=== PATIENT | female | born 1955 | race Caucasian/White ===

== ENCOUNTER 2021-08-31 12:13 | Emergency (ER) | payer MEDICARE, SELFPAY ==
--- NOTE | 2021-08-31 12:15 | ED.SKABFB ---
HPI - Skin/Abscess/Foreign Bdy General Chief complaint: Skin/Abscess/Foreign Body Stated complaint: Skin Sore Time Seen by Provider: 08/31/21 12:15 Source: patient Mode of arrival: ambulatory Limitations: no limitations History of Present Illness HPI narrative: is a 65-year-old female patient presenting to the clinic today with complaints of a skin sore x2 3 days. She reports that she developed a rash under her abdominal fold and it began bleeding. She reports that the bleeding has stopped but now she has a wound/sore to the right lower abdominal wall. Reports that she has yellowish discharge coming from the wound. She denies any pain at this time. Related Data Home Medications Medication Instructions Recorded Confirmed albuterol sulfate 2 puff INHALATION QID PRN 08/31/21 08/31/21 budesonide-formoterol [Symbicort] 2 puff INHALATION BID 08/31/21 08/31/21 fluoxetine 20 mg PO DAILY 08/31/21 08/31/21 ketoconazole 1 applic TOPICAL DAILY 08/31/21 08/31/21 montelukast 10 mg PO DAILY 08/31/21 08/31/21 tiotropium bromide [Spiriva 2 puff INHALATION DAILY 08/31/21 08/31/21 Respimat] Allergies Allergy/AdvReac Type Severity Reaction Status Date / Time azithromycin Allergy Mild HIVES Verified 08/31/21 12:37 Cephalosporins Allergy Mild HIVES Verified 08/31/21 12:37 ASPIRIN (Generic Allergy) Allergy Y Uncoded 08/31/21 12:37 Review of Systems Review of Systems: Pertinent positives per HPI. Patient denies any fever, chills, rash, headache, visual changes, dizziness, cough, runny nose, sore throat, shortness of breath, chest pain, palpitations, nausea, vomiting, diarrhea, constipation, abdominal pain, or any urinary issues. PMFSH Comments At the time of my signature, I reviewed and agree with the nursing past medical, surgical, social, and family history. There is no relevant family history pertinent to the patient complaint. Exam Narrative: General: Well-developed, well nourished, in no apparent distress Head: Normocephalic, atraumatic. Cardio: Regular rate and rhythm, s1 and s2 normal, no murmur appreciated. Resp: Clear to auscultation bilaterally, no rhonchi, rales, wheezing or rubs. Integumentary: [place], warm, and dry, open wound to the right lower abdominal wall that tunnels approximately 1 cm. Yellowish discharge expressed from the wound. Wound culture obtained. Wound is indurated approximately the size of a golf ball with very mild erythema. Course Course Emergency Course: Portions of this record may have been created with voice recognition software. Level of Care: Express Care Visit Vital Signs Vital signs: Vital Signs Temperature 37.7 C H 08/31/21 12:22 Pulse Rate 73 08/31/21 12:22 Respiratory Rate 20 08/31/21 12:22 Blood Pressure 142/59 H 08/31/21 12:22 Pulse Oximetry 95 08/31/21 12:22 Temperature 37.7 C H 08/31/21 12:22 Pulse Rate 73 08/31/21 12:22 Respiratory Rate 20 08/31/21 12:22 Blood Pressure 142/59 H 08/31/21 12:22 Pulse Oximetry 95 08/31/21 12:22 Vital signs reviewed MDM - Skin/Abscess/Foreign Bdy MDM Narrative Medical decision making narrative: At the time of visit patient is resting comfortably in the exam chair. Has an open wound to the right lower abdomen that has purulent discharge. Wound culture obtained and prescription for Bactrim placed. Wound was cleansed with Dermaclens in the clinic and triple antibiotic ointment and 4 x 4's applied. Discharge Plan Discharge Clinical Impression: Open wound of abdominal wall Qualifiers: Encounter type: initial encounter Qualified Code(s): S31.109A - Unspecified open wound of abdominal wall, unspecified quadrant without penetration into peritoneal cavity, initial encounter Patient Disposition: Home, Self-Care Condition: Stable Instructions: Antibiotic Form, Acute Wounds (ED) Additional Instructions: Wound culture obtained today and sent to lab Take antibiotics until they are all gone Dressing
[2021-08-31 12:22] VITALS: BP 142/59; PULSE 73; RESP 20; TEMP 37.7; O2SAT 95
== END 2021-08-31 13:00 | disposition home or self-care (01) ==
PROVIDERS: Emergency Provider Nurse Practitioner Family
DX: S31.103A Unspecified open wound of abdominal wall, right lower quadrant without penetration into peritoneal cavity, initial encounter (principal); X58.XXXA Exposure to other specified factors, initial encounter; J44.9 Chronic obstructive pulmonary disease, unspecified
CPT/HCPCS: 87070; 87205; 99203; G0463

== ENCOUNTER 2021-09-17 11:12 | Outpatient (CLI) | payer MEDICARE, SELFPAY ==
--- NOTE | ~2021-09-17 | CT_ITS ---
EXAMINATION: CT abdomen pelvis wo con DATE: 09/17/2021 12:04 INDICATION: Enterocutaneous fistula. Right lower quadrant skin lesion. TECHNIQUE: Computed tomography (CT) of the abdomen and pelvis was performed without intravenous contr ast. Automated exposure control and iterative reconstruction technique were employed. The dose-length product was 1433.65 mGy-cm. COMPARISON: None. FINDINGS: The visualized portions of the lung bases demonstrate emphysema. No pleural effusion. The h eart size is normal. No pericardial effusion. There are surgical changes of the stomach. The liver, g allbladder, spleen, pancreas, adrenal glands, and kidneys are normal. There is no urolithiasis. There are no dilated loops of bowel. The appendix is normal. There are no pathologically enlarged lymph no anuj. There is no free intraperitoneal fluid. There is focal skin thickening in right lower quadrant. There is severe lower lumbar spondylosis. There is mild chronic anterior wedging of multiple lower th oracic vertebral bodies. There are bridging endplate osteophytes at multiple levels in the thoracic s pine, consistent with diffuse idiopathic skeletal hyperostosis (DISH). IMPRESSION: 1. Focal skin thickening in right lower quadrant, likely inflammation. No fistula. Reviewed, dictated and finalized at location A. IMPRESSION: 1. Focal skin thickening in right lower quadrant, likely inflammation. No fistu la.
[2021-09-17 11:35] LABS: Estimated Glomerular Filt Rate 53
== END 2021-09-17 11:13 | disposition home or self-care (01) ==
LOC: CHSLAB 11:16
PROVIDERS: PCP Internal Medicine; Visit Provider Nurse Practitioner Family
DX: L98.8 Other specified disorders of the skin and subcutaneous tissue (principal); R19.00 Intra-abdominal and pelvic swelling, mass and lump, unspecified site
CPT/HCPCS: 74176

== ENCOUNTER 2022-04-12 12:56 | Outpatient (CLI) | payer MEDICARE, SELFPAY ==
--- NOTE | ~2022-04-12 | US_ITS ---
EXAMINATION: US thyroid DATE: 04/12/2022 13:51 INDICATION: History of lung cancer. Thyroid nodule seen on PET scan. TECHNIQUE: Multiple ultrasound images of the thyroid were obtained. COMPARISON: None. The above-mentioned PET scan is not available in our system at the time of this dic tation. FINDINGS: The right thyroid lobe measures 4.7 x 1.9 x 1.7 cm. The left thyroid lobe measures 4.6 x 2.3 x 2.1 c m. There is normal echotexture and echogenicity throughout the thyroid gland. Several 2-3 mm simple bilateral thyroid cysts, of doubtful clinical significance. 2.6 cm solid, slightly hypoechoic, wider than tall, smoothly marginated left thyroid lobe nodule, without suspicious echogenic foci. The nodul e contains a 4 mm hyperechoic focus without shadowing, likely representing proteinaceous or hemorrhag ic material. Normal vascular flow is present. IMPRESSION: 1. 2.6 cm moderately suspicious (TI-RADS 4) left thyroid nodule, recommend FNA for further evaluation . Reviewed, dictated and finalized at location K. WORKER IMPRESSION: 1. 2.6 cm moderately suspicious (TI-RADS 4) left thyroid nodule, recommend FNA for further evaluation.
== END 2022-04-12 12:57 | disposition home or self-care (01) ==
LOC: CHSIMG 12:58
PROVIDERS: PCP Internal Medicine; Visit Provider Internal Medicine
DX: E04.1 Nontoxic single thyroid nodule (principal)
CPT/HCPCS: 76536

== ENCOUNTER 2022-05-06 12:23 | Outpatient (CLI) | payer MEDICARE, SELFPAY ==
--- NOTE | ~2022-05-06 | US_ITS ---
EXAMINATION: US FNA w image guidance DATE: 05/06/2022 13:35 INDICATION: Thyroid nodule TECHNIQUE: A time-out was performed to verify the patient's name, date of , and procedure to be performed . The procedure and its benefits and risks were discussed with the patient. Risks specifically discus sed included bleeding and infection. The patient understood the risks and agreed to proceed. The neck was prepped and draped in the usual sterile manner. 3 mL 1% lidocaine was used for local anesthesia . 6 passes were made with a 25G needle into the lesion. Appropriate needle location was documented with continuous sonographic guidance. A sterile bandage was applied. There were no immediate compli cations. FINDINGS: Grayscale ultrasound images demonstrate biopsy needles advanced into a 2.4 cm TI RADS 4 left thyroid nodule.. IMPRESSION: 1. Successful ultrasound-guided fine needle aspiration of . Reviewed, dictated and finalized at location A. UTER SCIENTIST
== END 2022-05-06 12:24 | disposition home or self-care (01) ==
PROVIDERS: PCP Internal Medicine; Visit Provider Internal Medicine
DX: E04.1 Nontoxic single thyroid nodule (principal)
CPT/HCPCS: 10005; 88173; 88305

== ENCOUNTER 2024-07-24 11:47 | Outpatient (CLI) | payer MEDICARE, SELFPAY ==
--- NOTE | ~2024-07-24 | MM_ITS ---
EXAMINATION: MM screening nancy BI w lashanda HISTORY: Screening TECHNIQUE: Craniocaudal and mediolateral oblique 3-D tomosynthesis images were obtained and synthetic 2-D images were generated. CAD analysis was submitted and interpreted. COMPARISON: 09/23/2016 BREAST PARENCHYMAL COMPOSITION: Not Dense. The breasts are almost entirely fatty. FINDINGS: There is no evidence of suspicious mass, calcification, or architectural distortion to sugg est malignancy in either breast. There has been no suspicious interval change. IMPRESSION: 1. No mammographic evidence of malignancy. 2. Recommend routine screening mammography in one year. BI-RADS Category 1: Negative Reviewed, dictated and finalized at location A.
--- NOTE | ~2024-07-24 | DEXA_ITS ---
Bone Density Report Name: CELIA MEADOWS Age: 68 Sex: Female Ethnicity: White Date of : 1955 Indication: postmenopausal; screening for osteoporosis; height loss; asthma or emphysema; hysterectomy; Referring Provider: Lemuel Haque Study: Bone densitometry was performed. Exam Date: July 24, 2024 Accession number: [id number] Bone Density: Region BMD T-score Z-score Classification AP Spine(L1-L4) 1.014 -0.3 1.8 Normal Femoral Neck (Left) 0.509 -3.1 -1.2 Osteoporosis Total Hip (Left) 0.730 -1.7 -0.2 Osteopenia Femoral Neck (Right) 0.469 -3.4 -1.6 Osteoporosis Total Hip (Right) 0.729 -1.7 -0.2 Osteopenia Femoral Neck Mean 0.489 -3.2 -1.4 Osteoporosis Total Hip Mean 0.730 -1.7 -0.2 Osteopenia World Health Organization criteria for BMD impression classify patients as: Normal (T-score at or above -1.0), Osteopenia (T-score between -1.0 and -2.5), or Osteoporosis (T-score at or below -2.5). Clinical Information Provided by Patient: Smokes Has used the following medications: Vitamin D, Calcium Has the following medical conditions: Asthma or Emphysema, Hysterectomy Patient maximum height was 64 Menopause Age: 38 No regular weight bearing exercise Drinks caffeinated beverages Onset of menses at age 11 Number of children 4 Impression: The patient has osteoporosis, based on the Right Femoral Neck T-score. The patient has risk factors, including: smoking. Discussion: INCREASED RISK OF FRACTURE. BONE DENSITY IS UNDESIRABLY LOW AT ONE OR MORE SKELETAL SITES, CONSISTENT WITH POSTMENOPAUSAL OSTEOPOROSIS. This patient's lowest T-score meets the World Health Organization's (WHO) criteria for osteoporosis at one or more sites (T-score -2.5 or below). In untreated patients, the risk of osteoporotic fracture increases approximately two-fold for each 1.0 SD decrease in T-score. Low bone density is not the only risk factor for fracture; also consider factors such as patient's age, frailty or poor health, risk of falling, risk of injury, previous osteoporotic fracture, family history of osteoporosis, cigarette smoking, low body weight, etc. Not everyone with low bone mineral density has osteoporosis; osteomalacia and other metabolic bone disorders should also be considered. Patients who have osteoporosis should be evaluated for specific diseases and conditions (secondary causes) that may cause or contribute to bone loss. The [place] Association of Clinical Endocrinologists (AACE) and National Osteoporosis Foundation (NOF) recommend pharmacologic intervention for all postmenopausal women whose T-score is in this range. The patient should follow a healthful lifestyle (good nutrition with adequate calcium and vitamin D, and appropriate weight-bearing exercise). Follow-Up: Consider a repeat BMD and Vertebral Fracture Assessment (VFA) exam in 2 years or sooner if medically necessary, to reassess this patient's status. Reported by: MATTEO on 07/24/2024 12:34:00 PM. Reviewed, dictated and finalized at location A.
--- OUTSIDE RECORDS SUMMARY | 2024-07-24 13:24 | XMS_ITS | Clinical Summary ---
Author Organization [facility] Address [address] [place] [id number] Care Team Providers Care Journeyman Carpenter Name Role Phone Lemuel Haque MD Primary Care Provider [phone] Pieter Gurrola MD PhD Unavailable [phone] Beto Iraheta MD Unavailable [phone] Allergies Active Allergy Reactions Criticality Noted Date Comments Aspirin Silver Unknown 08/29/2016 Medications budesonide-formo terol (SYMBICORT) 160-4.5 mcg/actuation inhaler Inhale 2 puffs 2 (two) times a day. Rinse mouth with water after use. Do not swallow. Active spironolactone (ALDACTONE) 50 mg tablet Take 50 mg by mouth daily. Active albuterol HFA (PROVENTIL HFA,VENTOLIN HFA,PROAIR HFA) 90 mcg/actuation inhalerIndicatio ns:Chronic Obstructive Pulmonary Disease Inhale 2 puffs every 4 (four) hours as needed for wheezing. Active FLUoxetine (PROzac) 20 mg capsule TAKE 1 CAPSULE (20 MG) DAILY 0 Active Spiriva Respimat 2.5 mcg/actuation inhaler INHALE 2 PUFFS BY MOUTH EVERY DAY 0 Active fluticasone propionate (FLONASE) 50 mcg/actuation nasal sprayIndications :Allergic rhinitis, unspecified seasonality, unspecified trigger Administer 2 sprays into each nostril daily 16 g 11 0 Active azithromycin (Zithromax Z-Ochoa) 250 mg tablet Take 1 tablet (250 mg total) by mouth daily Take first 2 tablets together, then 1 every day until finished. 6 tablet 4 Active Active Problems Problem Noted Date Diagnosed Date Malignant neoplasm of upper lobe, right bronchus or lung 03/04/2022 Cancer Staging:Clinical stage from 03/04/2022:Stage IA2(cT1b, cN0, cM0) - Signed by Pieter Gurrola MD PhD on 03/04/2022 Allergic rhinitis 02/21/2020 Assessment & Plan (02/21/2020 11:29 AM BLASTER HELPER): Nasal saline spray (Simply saline, Little Remedies, [place] Detour, Gage) 2 second sprays or 2 squeezes into each nostril while looking down over the sink, do not need to sniff in. Followed by Flonase 2 sprays into each nostril while looking down over the sink, do not sniff in or blow nose after use for at least 30 minutes daily Cetirizine 10 mg (Zyrtec) daily CHF (congestive heart failure) 05/27/2018 Assessment & Plan (05/27/2018 9:41 AM BLASTER HELPER): Echo could estimated RVSP and suspect some pulm htn. EF normal Lasix added to spironolactone Morbid obesity 05/24/2018 Overview (05/24/2018): Can be addressed on outpt basis when resp issues more stable Influenza A 05/23/2018 Assessment & Plan (05/24/2018 4:39 PM BLASTER HELPER): Patient is currently on Tamiflu. She has been afebrile and denies any myalgias. Will continue to monitor. Supportive care if needed. Assessment & Plan (05/23/2018 10:21 PM BLASTER HELPER): Patient is currently on Tamiflu. She has been afebrile and denies any myalgias. Will continue to monitor. Supportive care if needed. Acute exacerbation of chroni c obstructive pulmonary disease (COPD) 05/23/2018 Assessment & Plan (05/24/2018 4:40 PM BLASTER HELPER): Likely secondary to influenza. Patient was given 125 mg of Solu-Medrol with EMS. Will start prednisone 40 daily. Patient is on doxycycline. Will continue with breathing treatments q.4 hours. Continue to monitor. Assessment & Plan (05/23/2018 10:31 PM BLASTER HELPER): Likely secondary to influenza. Patient was given 125 mg of Solu-Medrol with EMS. Will start prednisone 40 daily. Patient is on doxycycline. Will continue with breathing treatments q.4 hours. Continue to monitor. Acute on chronic respiratory failure with hypoxia and hypercapnia 05/23/2018 Assessment & Plan (05/25/2018 7:02 PM BLASTER HELPER): Likely secondary to influenza and acute COPD exacerbation. Patient is on 3 L home oxygen normally. She is currently on BiPAP which will continue overnight. Will repeat ABG in the a.m.. ABG didn't show much improvement, settings adjusted per RT and still largely unchanged. Pulmonary consulted, settings adjusted and resp acidosis improving BNP also elevated. Given dose of Lasix and Echo ordered as well Assessment & Plan (05/23/2018 10:22 PM BLASTER HELPER): Likely secondary to influenza and acute COPD exacerbation. Patient is on 3 L home oxygen normally. She is currently on BiPAP which will continue overnight. Will repeat ABG in the a.m.. Essential hypertension 05/23/2018 Assessment & Plan (05/24/2018 4:39 PM BLASTER HELPER): Blood pressure is slightly elevated at this time. Will DC IV fluids. Will resume spironolactone with hold parameters. Continue to monitor. Assessment & Plan (05/23/2018 10:21 PM BLASTER HELPER): Blood pressure is slightly elevated at this time. Will DC IV fluids. Will resume spironolactone with hold parameters. Continue to monitor. Tobacco dependence 05/23/2018 Assessment & Plan (05/24/2018 4:39 PM BLASTER HELPER): Patient smokes 1 pack per day for last 50 years. She would like a nicotine patch at this time. Assessment & Plan (05/23/2018 10:21 PM BLASTER HELPER): Patient smokes 1 pack per day for last 50 years. She would like a nicotine patch at this time. Encounters Date Type Department Care Team Description 07/18/2024 1:06 PM CDT - 07/18/2024 11:59 PM CDT Hospital Encounter [facility] [address] [place] [address] Malignant neoplasm of upper lobe, right bronchus or lung (HCC) Discharge Disposition: Discharge to home or self care 07/17/2024 Telephone [facility] [address] [place] [address] Breanna John 05/02/2024 1:30 PM BLASTER HELPER Office Visit [facility] [address] [place] [address] Angelique Gaspar NP Malignant neoplasm of upper lobe, right bronchus or lung (HCC) 04/25/2024 1:24 PM BLASTER HELPER - 04/25/2024 11:59 PM BLASTER HELPER Hospital Encounter [facility] [address] [place] [id number] Malignant neoplasm of upper lobe, right bronchus or lung (HCC) Discharge Disposition: Discharge to home or self care from Last 3 Months Surgical History Surgery Date Site/Laterality Comments GASTRIC BYPASS Medical History Medical History Date Comments Anemia Anemia Hypertension Hypertension COPD (chronic obstructive pulmonary disease) (HC C) Family History Medical History Relation Name Comments Cancer Other 1 Family history of Cancer; Heart disease Other 2 Family history of Heart disease; Hypertension Other 3 Family history of Hypertension; Relation Name Status Comments Other 1 Other 2 Other 3 Social History Tobacco Use Types Packs/Day Years Used Date Smoking Tobacco: Every Day Cigarettes 1.5 56.3 Started: 1968 Smokeless Tobacco: Never Tobacco Cessation:Ready to Q uit: No; Counseling Given: No Comments:pack n a half Alcohol Use Standard Drinks/Week Comments No 0 (1 standard drink = 0.6 oz pur e alcohol) Personal Safety Answer Date Recorded Have you ever been in or are you currently in a harmful physical or emotional relationship or is someone making you feel afraid or unsafe? Denies 04/30/2023 Comments No Sex and Gender Information Value Date Recorded Sex Assigned at Not on file Legal Sex Female 1:52 AM BLASTER HELPER Gender Identity Not on file Sexual Orientation Not on file Obstetrics History Last Filed Vital Signs Vital Sign Reading Time Taken Comments Blood Pressure 131/66 05/02/2024 1:45 PM BLASTER HELPER Pulse 76 05/02/2024 1:45 PM BLASTER HELPER Temperature 36.3 C (97.4 F) 05/02/2024 1:45 PM BLASTER HELPER Respiratory Rate 20 05/02/2024 1:45 PM BLASTER HELPER Oxygen Saturation 96% 05/02/2024 1:45 PM BLASTER HELPER Inhaled Oxygen Concentration - - Weight 104.8 kg (231 lb) 02/01/2024 1:04 PM CDT Height 160 cm (5' 3 ) 04/30/2023 2:10 PM BLASTER HELPER Body Mass Index 40.92 04/30/2023 2:10 PM BLASTER HELPER Plan of Treatment Health Maintenance Due Date Last Done Comments Breast Cancer Screening-Mammogram 1955 Colon Cancer Screening-Colonoscopy 1955 Depression Screening 1955 Fall Risk Assessment 1955 Hepatitis C Screening 1955 Osteoporosis Screening-Bone Density Scan 1955 DTaP/Tdap/Td Vaccine (1 - Tdap) 1964 Hepatitis B Screening 12/23/1971 Zoster Vaccine (1 of 2) 12/23/2003 Well Visit 65+ 2018 Pneumococcal vaccine 65+ (3 of 3 - PCV20 or PCV21) 04/30/2024 04/30/2019, 02/16/2018 Influenza Vaccine (Season Ended) 2024 Procedures Procedure Name Priority Date/Time Associated Diagnosis Comments CT CHEST WO CONTRAST Schedule Routine, Read Routine (OP Routine) 04/25/2024 1:43 PM BLASTER HELPER Malignant neoplasm of upper lobe, right bronchus or lung (HCC) from Last 3 Months Results * CT Chest WO Contrast (04/25/2024 1:43 PM BLASTER HELPER) Anatomical Region Laterality Modality Body N/A Computed Tomogra phy 04/26/2024 12:5 6 PM BLASTER HELPER Narrative 04/26/2024 1:10 PM BLASTER HELPER EXAM DESCRIPTION: CT CHEST WO CONTRAST REASON FOR STUDY: Non-small cell lung cancer (NSCLC), non-metastatic, assess treatment response F/u on lung cancer, received radiation, no current complaints, smoker TECHNIQUE: CT scan of the chest performed without intravenous contrast using helical scanning technique. Reconstructed coronal and sagittal MPR images reviewed. All images stored on PACS. Automated exposure control was used as a dose optimization technique for this examination. COMPARISON: 01/25/2024 FINDINGS: The sensitivity for detection of solid visceral lesions is diminished without the use of intravenous contrast. LUNGS: There is no definite evidence of a pneumothorax. The central airways are grossly patent. There are scattered mild bronchial wall thickening, which is likely related to mild chronic bronchitis/bronchiolitis. There are severe emphysematous changes of lungs with scattered mild subsegmental atelectasis and scarring. There is no definite evidence of a pleural effusion. There is redemonstration of the patchy linear airspace opacities in the anteromedial right upper lobe extending from the right hilum to the anterior pleural surface with mild irregular pleural thickening measuring up to 0.6 cm in thickness, which previously measured up to 0.4 cm (axial image 29). Findings are likely related to posttreatment/postradiation changes, however given the mild increased pleural thickening, local recurrence can not be entirely excluded. There is interval development of a 0.6 cm right middle lobe pulmonary nodule (axial image 45). The previously visualized new irregular nodule in the anterolateral right upper lobe measuring 0.6 x 0.3 cm appears grossly stable (axial image 32). There is interval decreased conspicuity of the previously visualized subtle bilobed pulmonary nodule in the medial right middle lobe measuring 0.2 cm on the current study, which previously measured up to 0.4 cm (axial image 45). There is a stable subpleural 0.2 cm pulmonary nodule in the anterolateral left upper lobe, which is grossly unchanged since 08/04/2021, and therefore likely benign (axial image 15). There is a stable subpleural 0.6 cm pulmonary nodule in the anterolateral left lower lobe, which may be partially calcified and is overall grossly unchanged since prior CT dated 08/04/2021, and therefore likely benign (axial image 75). MEDIASTINUM/NADIRA: There is a grossly stable hypoattenuating left thyroid nodule measuring 1.5 cm, which is better evaluated on prior thyroid ultrasound dated 06/19/2023. The heart size is stable. There are mild atherosclerotic changes of the thoracic aorta and coronary vessels. There is dilatation of main pulmonary artery measuring up to 3.9 cm, which is concerning for pulmonary arterial hypertension. There is no definite unenhanced CT evidence of mediastinal, hilar, or axillary lymphadenopathy. There are scattered subcentimeter mediastinal lymph nodes noted with largest measuring 0.6 cm in the paratracheal region (axial image 30). CORONARY ARTERY CALCIFICATION: Present. CHEST WALL: No masses. No subcutaneous air. HARDWARE/LINES/TUBES: None. UPPER ABDOMEN: There is mild mucosal thickening of the esophagus. There is a small hiatal hernia. Postsurgical changes of gastric bypass are partially visualized. The bilateral adrenal glands are grossly stable and unremarkable. MUSCULOSKELETAL: There is mild osteopenia with degenerative changes of the spine. OTHER: No other significant abnormality. IMPRESSION: Redemonstration of the patchy linear airspace opacities in the anteromedial right upper lobe extending from the right hilum to the anterior pleural surface with mild irregular pleural thickening, which has mildly increased in comparison to the prior study. Findings are likely related to posttreatment/postradiation changes, however given the mild increased pleural thickening, local recurrence can not be entirely excluded. Short-term follow-up CT in 3 months is recommended to assess for stability as clinically indicated. Interval development of a 0.6 cm right middle lobe pulmonary nodule, which is indeterminate in etiology. Continued attention on the aforementioned follow-up chest CT is recommended as included. Previously visualized new irregular pulmonary nodule in the anterolateral right upper lobe measuring up to 0.6 cm appears grossly stable. Continued attention on the aforementioned follow-up chest CT is recommended to assess for stability as clinically indicated. Interval decreased conspicuity of the previously visualized subtle bilobed pulmonary nodule in the medial right middle lobe measuring 0.2 cm on the current study, which previously measured up to 0.4 cm. Additional pulmonary nodules in the left lung, which are grossly unchanged since 08/04/2021, and therefore likely benign. Severe emphysematous changes of lungs with scattered mild subsegmental atelectasis and scarring. Scattered mild bronchial wall thickening, which is likely related to mild chronic bronchitis/bronchiolitis. Mild mucosal thickening of the esophagus, which may be related to underdistention, reactive changes secondary to the small hiatal hernia, or esophagitis. This may be further evaluated with endoscopy as clinically indicated. THIS IS AN ELECTRONICALLY VERIFIED FINAL REPORT 04/26/2024 1:10 PM - Electronically signed by Duran Ortiz D.O. PS: PS Report ID: [id number] Reading Location: [id number] Procedure Note Martínez Ortizarash Rosas, DO - 04/26/2024 EXAM DESCRIPTION: CT CHEST WO CONTRAST REASON FOR STUDY: Non-small cell lung cancer (NSCLC), non-metastatic,assess treatment response F/u on lung cancer, received radiation, no current complaints, smoker TECHNIQUE: CT scan of the chest performed without intravenous contrastusing helical scanning technique. Reconstructed coronal and sagittal MPR images reviewed. All images stored on PACS. Automated exposure control was usedas a dose optimization technique for this examination. COMPARISON: 01/25/2024 FINDINGS: The sensitivity for detection of solid visceral lesions is diminishedwithout the use of intravenous contrast. LUNGS: There is no definite evidence of a pneumothorax. The centralairways are grossly patent. There are scattered mild bronchial wall thickening,which is likely related to mild chronic bronchitis/bronchiolitis. There aresevere emphysematous changes of lungs with scattered mild subsegmentalatelectasis and scarring. There is no definite evidence of a pleural effusion. There is redemonstration of the patchy linear airspace opacities in the anteromedial right upper lobe extending from the right hilum to theanterior pleural surface with mild irregular pleural thickening measuring up to 0.6cm in thickness, which previously measured up to 0.4 cm (axial image 29). Findings are likely related to posttreatment/postradiation changes,however given the mild increased pleural thickening, local recurrence can not be entirely excluded. There is interval development of a 0.6 cm right middle lobe pulmonarynodule (axial image 45). The previously visualized new irregular nodule in the anterolateral right upper lobe measuring 0.6 x 0.3 cm appears grossly stable (axial image 32). There is interval decreased conspicuity of the previously visualizedsubtle bilobed pulmonary nodule in the medial right middle lobe measuring 0.2 cmon the current study, which previously measured up to 0.4 cm (axial image45). There is a stable subpleural 0.2 cm pulmonary nodule in the anterolateralleft upper lobe, which is grossly unchanged since 08/04/2021, and thereforelikely benign (axial image 15). There is a stable subpleural 0.6 cm pulmonarynodule in the anterolateral left lower lobe, which may be partially calcified andis overall grossly unchanged since prior CT dated 08/04/2021, and therefore likely benign (axial image 75). MEDIASTINUM/NADIRA: There is a grossly stable hypoattenuating left thyroid nodule measuring 1.5 cm, which is better evaluated on prior thyroidultrasound dated 06/19/2023. The heart size is stable. There are mildatherosclerotic changes of the thoracic aorta and coronary vessels. There is dilatationof main pulmonary artery measuring up to 3.9 cm, which is concerning for pulmonary arterial hypertension. There is no definite unenhanced CT evidence of mediastinal, hilar, oraxillary lymphadenopathy. There are scattered subcentimeter mediastinal lymphnodes noted with largest measuring 0.6 cm in the paratracheal region (axialimage 30). CORONARY ARTERY CALCIFICATION: Present. CHEST WALL: No masses. No subcutaneous air. HARDWARE/LINES/TUBES: None. UPPER ABDOMEN: There is mild mucosal thickening of the esophagus. Thereis a small hiatal hernia. Postsurgical changes of gastric bypass arepartially visualized. The bilateral adrenal glands are grossly stable andunremarkable. MUSCULOSKELETAL: There is mild osteopenia with degenerative changes ofthe spine. OTHER: No other significant abnormality. IMPRESSION: Redemonstration of the patchy linear airspace opacities in theanteromedial right upper lobe extending from the right hilum to the anterior pleural surface with mild irregular pleural thickening, which has mildly increasedin comparison to the prior study. Findings are likely related to posttreatment/postradiation changes, however given the mild increasedpleural thickening, local recurrence can not be entirely excluded. Short-term follow-up CT in 3 months is recommended to assess for stability asclinically indicated. Interval development of a 0.6 cm right middle lobe pulmonary nodule,which is indeterminate in etiology. Continued attention on the aforementioned follow-up chest CT is recommended as included. Previously visualized new irregular pulmonary nodule in the anterolateral right upper lobe measuring up to 0.6 cm appears grossly stable. Continued attention on the aforementioned follow-up chest CT is recommended toassess for stability as clinically indicated. Interval decreased conspicuity of the previously visualized subtlebilobed pulmonary nodule in the medial right middle lobe measuring 0.2 cm on the current study, which previously measured up to 0.4 cm. Additional pulmonary nodules in the left lung, which are grosslyunchanged since 08/04/2021, and therefore likely benign. Severe emphysematous changes of lungs with scattered mild subsegmental atelectasis and scarring. Scattered mild bronchial wall thickening, which is likely related to mild chronic bronchitis/bronchiolitis. Mild mucosal thickening of the esophagus, which may be related to underdistention, reactive changes secondary to the small hiatal hernia, or esophagitis. This may be further evaluated with endoscopy as clinically indicated. THIS IS AN ELECTRONICALLY VERIFIED FINAL REPORT 04/26/2024 1:10 PM - Electronically signed by Duran Ortiz D.O. PS: PS Report ID: [id number] Reading Location: [place] [address] Angelique Gaspar FINISHING POWDER PRESS OPERATOR IMG CT PROCEDURES Final Resul t from Last 3 Months Insurance [facility] MEDICARE ADVANTAGE IDPA AETNA MEDICARE IDME AET MEDICARE AET MEDICARE IDPA Advance Directives For more information, please contact: [phone] * Full Code (Latest Code Status on File) Date Activated Date Inactivated Comments 05/23/2018 5:04 PM 06/01/2018 5:47 PM Care Teams Journeyman Carpenter Relationship Specialty Start Date End Date Lemuel Haque MD PCP - General 10/07/10 Pieter Gurrola MD PhD [address] [place] [address] Radiation Oncologist Radiation Oncology 03/04/22 [place] [id number] [address] Referring Physician Pulmonary Disease 03/04/22
--- OUTSIDE RECORDS SUMMARY | 2024-07-24 13:24 | XMS_ITS | Clinical Summary ---
Author Organization [facility] Address [address], [place] [address] Phone Care Team Providers Care Bark Fitter Name Role Phone Lemuel Haque MD Primary Care Provider [phone] Allergies Active Allergy Reactions Criticality Noted Date Comments Aspirin Other (see Comments) 08/29/2016 IRRITATES STOMACH Silver Unknown 08/29/2016 Medications PROAIR HFA 108 (90 Base) MCG/ACT Aerosol Solution INHALE TWO PUFFS BY MOUTH EVERY SIX HOURS NEEDED 6 7 Active SYMBICORT 160-4.5 MCG/ACT Aerosol INHALE TWO PUFFS BY MOUTH TWO TIMES A DAY 3 7 Active spironolactone (ALDACTONE) 50 MG Tablet TAKE 1 TABLET BY MOUTH EVERY MORNING 0 7 Active tiotropium (SPIRIVA HANDIHALER) 18 MCG Capsule take 1 Puff by inhalation daily. Active Active Problems Problem Noted Date Diagnosed Date Centrilobular emphysema 08/31/2016 Morbid obesity due to excess calories 08/31/2016 Pulmonary hypertension 08/31/2016 Tobacco use disorder 08/31/2016 Essential (primary) hypertension 08/31/2016 Resolved Problems Problem Noted Date Diagnosed Date Resolved Date Pulmonary hypert 08/31/2016 08/31/2016 Family History Medical History Relation Name Comments Cancer Father Diabetes Father Heart Disease Father Other-comment Father LUNG DISEASE Relation Name Status Comments Father Social History Tobacco Use Types Packs/Day Years Used Date Smoking Tobacco: Every Day Cigarettes 0.5 47 Tobacco Cessation:Ready to Q uit: No; Counseling Given: No Alcohol Use Standard Drinks/Week Comments No 0 (1 standard drink = 0.6 oz pur e alcohol) Comments No Sex and Gender Information Value Date Recorded Sex Assigned at Not on file Legal Sex Female 9:32 PM CDT Gender Identity Not on file Sexual Orientation Not on file Last Filed Vital Signs Vital Sign Reading Time Taken Comments Blood Pressure 130/78 08/31/2016 10:28 AM CDT Pulse 88 08/31/2016 10:28 AM CDT Temperature 36.4 C (97.6 F) 08/31/2016 10:28 AM CDT Respiratory Rate 18 08/31/2016 10:2 8 AM CDT Oxygen Saturation 93% 08/31/2016 10: 28 AM CDT Inhaled Oxygen Concentration - - Weight 117.3 kg (258 lb 9.6 oz) 017 10:28 AM CDT Height 160 cm (5' 3 ) 08/31/2016 10:28 AM CDT Body Mass Index 45.81 08/31/2016 10:28 AM CDT Plan of Treatment Health Maintenance Due Date Last Done Comments Hepatitis C Virus (HCV) Screening 1955 TdaP Immunization 1955 Colonoscopy 1998 Colorectal Cancer Screening 1998 Cologuard 12/23/2003 Immunochemical Fecal Occult Blood 12/23/2003 Zoster Immunization (1 of 2) 12/23/2003 Respiratory Syncytial Virus (RSV) Immunization (Adult) (1 - Risk 60-74 years 1-dose series) 2013 SARS-COV-2 Immunization (1 - 2023- season) 2023 Pneumococcal Immunization (5 0+ years) (3 of 3 - PCV20 or PCV21) 04/30/2024 04/30/2019, 02/16/2018 Influenza Immunization (Seas on Ended) 2024 Pneumococcal Immunization Combined Discontinued 04/30/2019, 02/16/2018 Hepatitis B Immunization Aged Out No longer eligible based on patient's age to complete this topic Meningococcal Immunization (ACWY) Aged Out No longer eligible based on patient's age to complete this topic Rotavirus Immunization Aged Out No lo nger eligible based on patient's age to complete this topic Insurance MEDICARE [facility] Care Teams Bark Fitter Relationship Specialty Start Date End Date Lemuel Haque MD [address] [place] [address] PCP - General Internal Medicine 05/27/16
--- OUTSIDE RECORDS SUMMARY | 2024-07-24 13:24 | XMS_ITS ---
Author Organization [facility] Address [address] [place] [id number] Care Team Providers Care Plug Stitcher Name Role Phone Lemuel Haque MD Primary Care Provider [phone] Pieter Gurrola MD PhD Unavailable [phone] Beto Iraheta MD Unavailable [phone] Active Problems Problem Noted Date Diagnosed Date Malignant neoplasm of upper lobe, right bronchus or lung 03/04/2022 Cancer Staging:Clinical stage from 03/04/2022:Stage IA2(cT1b, cN0, cM0) - Signed by Pieter Gurrola MD PhD on 03/04/2022 Allergic rhinitis 02/21/2020 Assessment & Plan (02/21/2020 11:29 AM FOOD GENERAL MANAGER): Nasal saline spray (Simply saline, Little Remedies, [place], [place]) 2 second sprays or 2 squeezes into [...] 05/27/2018 Assessment & Plan (05/27/2018 9:41 AM FOOD GENERAL MANAGER): Echo could estimated RVSP and suspect some pulm htn. EF normal Lasix added to spironolactone Morbid obesity 05/24/2018 Overview (05/24/2018): Can be addressed on outpt basis when resp issues more stable Influenza A 05/23/2018 Assessment & Plan (05/24/2018 4:39 PM FOOD GENERAL MANAGER): Patient is currently on Tamiflu. She has been afebrile and denies any myalgias. Will continue to monitor. Supportive care if needed. Assessment & Plan (05/23/2018 10:21 PM FOOD GENERAL MANAGER): Patient is currently on Tamiflu. She has been afebrile and denies any myalgias. Will continue to monitor. Supportive care if needed. Acute exacerbation of chroni c obstructive pulmonary disease (COPD) 05/23/2018 Assessment & Plan (05/24/2018 4:40 PM FOOD GENERAL MANAGER): Likely secondary to influenza. Patient was given 125 mg of Solu-Medrol with EMS. Will start prednisone 40 daily. Patient is on doxycycline. Will continue with breathing treatments q.4 hours. Continue to monitor. Assessment & Plan (05/23/2018 10:31 PM FOOD GENERAL MANAGER): Likely secondary to influenza. Patient was given 125 mg of Solu-Medrol with EMS. Will start prednisone 40 daily. Patient is on doxycycline. Will continue with breathing treatments q.4 hours. Continue to monitor. Acute on chronic respiratory failure with hypoxia and hypercapnia 05/23/2018 Assessment & Plan (05/25/2018 7:02 PM FOOD GENERAL MANAGER): Likely secondary to influenza and acute COPD [...] well Assessment & Plan (05/23/2018 10:22 PM FOOD GENERAL MANAGER): Likely secondary to influenza and acute COPD exacerbation. Patient is on 3 L home oxygen normally. She is currently on BiPAP which will continue overnight. Will repeat ABG in the a.m.. Essential hypertension 05/23/2018 Assessment & Plan (05/24/2018 4:39 PM FOOD GENERAL MANAGER): Blood pressure is slightly elevated at this time. Will DC IV fluids. Will resume spironolactone with hold parameters. Continue to monitor. Assessment & Plan (05/23/2018 10:21 PM FOOD GENERAL MANAGER): Blood pressure is slightly elevated at this time. Will DC IV fluids. Will resume spironolactone with hold parameters. Continue to monitor. Tobacco dependence 05/23/2018 Assessment & Plan (05/24/2018 4:39 PM FOOD GENERAL MANAGER): Patient smokes 1 pack per day for last 50 years. She would like a nicotine patch at this time. Assessment & Plan (05/23/2018 10:21 PM FOOD GENERAL MANAGER): Patient smokes 1 pack per day for last 50 years. She would like a nicotine patch at this time. Current Treatment and Therapy Plans No current plan information found. Past Treatment and Therapy Plans No past plan information found. Radiation Treatments * Course [id number]_202103/21/2022 - 03/25/2022 Treatment Period Energy Fraction Dose Fractions Total Dose Plans Planned SBRT RUL LUNG 03/21/2022 - 03/25/2022 1,100 5 / 5,500 Reference Points Delivered SBRT RUL LUNG 03/21/2022 - 03/25/2022 5,500 Lifetime Dose Tracking * Chemical Lifetime Dose Automatic Entry Manual Entr y DLP 117.8 mGycm 117.8 mGycm 0 mGycm CTDIvol 3.8 mGy 3.8 mGy 0 mGy
--- OUTSIDE RECORDS SUMMARY | 2024-07-24 13:24 | XMS_ITS | Referral Summary ---
Author Organization [facility] Address [address] [place] [phone] Care Team Providers Care Generalist Name Role Phone Lemuel Haque MD Primary Care Provider [phone] Pieter Gurrola MD PhD Unavailable [phone] Beto Iraheta MD Unavailable [phone] Encounters Date Type Department Care Team Description 07/18/2024 1:06 PM CDT - 07/18/2024 11:59 PM CDT Hospital Encounter [facility] [address] [place] [address] Malignant neoplasm of upper lobe, right bronchus or lung (HCC) Discharge Disposition: Discharge to home or self care 07/17/2024 Telephone [facility] [address] [place] [phone] Breanna John 05/02/2024 1:30 PM DETECTIVE SERGEANT Office Visit [facility] [address] [place] [address] Angelique Gaspar NP Malignant neoplasm of upper lobe, right bronchus or lung (HCC) 04/25/2024 1:24 PM DETECTIVE SERGEANT - 04/25/2024 11:59 PM DETECTIVE SERGEANT Hospital Encounter [address] [address] Malignant neoplasm of upper lobe, right bronchus or lung (HCC) Discharge Disposition: Discharge to home or self care from Last 3 Months Allergies Active Allergy Reactions Criticality Noted Date [...] 02/21/2020 Assessment & Plan (02/21/2020 11:29 AM DETECTIVE SERGEANT): Nasal saline spray (Simply saline, Little Remedies, [place], [place]) 2 second sprays or 2 squeezes into [...] 05/27/2018 Assessment & Plan (05/27/2018 9:41 AM DETECTIVE SERGEANT): Echo could estimated RVSP and suspect some pulm htn. EF normal Lasix added to spironolactone Morbid obesity 05/24/2018 Overview (05/24/2018): Can be addressed on outpt basis when resp issues more stable Influenza A 05/23/2018 Assessment & Plan (05/24/2018 4:39 PM DETECTIVE SERGEANT): Patient is currently on Tamiflu. She has been afebrile and denies any myalgias. Will continue to monitor. Supportive care if needed. Assessment & Plan (05/23/2018 10:21 PM DETECTIVE SERGEANT): Patient is currently on Tamiflu. She has been afebrile and denies any myalgias. Will continue to monitor. Supportive care if needed. Acute exacerbation of chroni c obstructive pulmonary disease (COPD) 05/23/2018 Assessment & Plan (05/24/2018 4:40 PM DETECTIVE SERGEANT): Likely secondary to influenza. Patient was given 125 mg of Solu-Medrol with EMS. Will start prednisone 40 daily. Patient is on doxycycline. Will continue with breathing treatments q.4 hours. Continue to monitor. Assessment & Plan (05/23/2018 10:31 PM DETECTIVE SERGEANT): Likely secondary to influenza. Patient was given 125 mg of Solu-Medrol with EMS. Will start prednisone 40 daily. Patient is on doxycycline. Will continue with breathing treatments q.4 hours. Continue to monitor. Acute on chronic respiratory failure with hypoxia and hypercapnia 05/23/2018 Assessment & Plan (05/25/2018 7:02 PM DETECTIVE SERGEANT): Likely secondary to influenza and acute COPD [...] well Assessment & Plan (05/23/2018 10:22 PM DETECTIVE SERGEANT): Likely secondary to influenza and acute COPD exacerbation. Patient is on 3 L home oxygen normally. She is currently on BiPAP which will continue overnight. Will repeat ABG in the a.m.. Essential hypertension 05/23/2018 Assessment & Plan (05/24/2018 4:39 PM DETECTIVE SERGEANT): Blood pressure is slightly elevated at this time. Will DC IV fluids. Will resume spironolactone with hold parameters. Continue to monitor. Assessment & Plan (05/23/2018 10:21 PM DETECTIVE SERGEANT): Blood pressure is slightly elevated at this time. Will DC IV fluids. Will resume spironolactone with hold parameters. Continue to monitor. Tobacco dependence 05/23/2018 Assessment & Plan (05/24/2018 4:39 PM DETECTIVE SERGEANT): Patient smokes 1 pack per day for last 50 years. She would like a nicotine patch at this time. Assessment & Plan (05/23/2018 10:21 PM DETECTIVE SERGEANT): Patient smokes 1 pack per day for last 50 years. She would like a nicotine patch at this time. Social History Tobacco Use Types Packs/Day Years [...] on file Legal Sex Female 1:52 AM DETECTIVE SERGEANT Gender Identity Not on file Sexual Orientation Not on file Last Filed Vital Signs Vital Sign Reading Time Taken Comments Blood Pressure 131/66 05/02/2024 1:45 PM DETECTIVE SERGEANT Pulse 76 05/02/2024 1:45 PM DETECTIVE SERGEANT Temperature 36.3 C (97.4 F) 05/02/2024 1:45 PM DETECTIVE SERGEANT Respiratory Rate 20 05/02/2024 1:45 PM DETECTIVE SERGEANT Oxygen Saturation 96% 05/02/2024 1:45 PM DETECTIVE SERGEANT Inhaled Oxygen Concentration - - Weight 104.8 kg (231 lb) 02/01/2024 1:04 PM CDT Height 160 cm (5' 3 ) 04/30/2023 2:10 PM DETECTIVE SERGEANT Body Mass Index 40.92 04/30/2023 2:10 PM DETECTIVE SERGEANT Plan of Treatment Not on file Procedures Procedure Name Priority Date/Time Associated Diagnosis Comments CT CHEST WO CONTRAST Schedule Routine, Read Routine (OP Routine) 04/25/2024 1:43 PM DETECTIVE SERGEANT Malignant neoplasm of upper lobe, right bronchus or lung (HCC) from Last 3 Months Results * CT Chest WO Contrast (04/25/2024 1:43 PM DETECTIVE SERGEANT) Anatomical Region Laterality Modality Body N/A Computed Tomogra phy 04/26/2024 12:5 6 PM DETECTIVE SERGEANT Narrative 04/26/2024 1:10 PM DETECTIVE SERGEANT EXAM DESCRIPTION: CT CHEST WO CONTRAST REASON [...] Duran Ortiz D.O. PS: PS Report ID: [id number] Reading Location: [place] [address] Procedure Note Duran Ortiz, DO - 04/26/2024 EXAM DESCRIPTION: CT CHEST [...] Duran Ortiz D.O. PS: PS Report ID: [id number] Reading Location: [place] [address] us Angelique Gaspar NP IMG CT PROCEDURES Final Resul t from Last 3 Months Insurance [facility] MEDICARE ADVANTAGE [facility] MEDIC[facility] Address: [address] [address] [place] [address] IDPA [facility] MEDICARE IDPA AETNA MEDICARE AETNA MEDICARE IDPA Advance Directives For more information, please contact: [phone] * Full Code (Latest Code Status on File) Date Activated Date Inactivated Comments 05/23/2018 5:04 PM 06/01/2018 5:47 PM Care Teams Generalist Relationship Specialty Start Date End Date Lemuel Haque MD PCP - General 10/07/10 Pieter Gurrola MD PhD [address] [place] [address] Radiation Oncologist Radiation Oncology 03/04/22 [place] [id number] [address] Referring Physician Pulmonary Disease 03/04/22
== END 2024-07-24 11:48 | disposition home or self-care (01) ==
PROVIDERS: PCP Internal Medicine; Visit Provider Internal Medicine
DX: Z12.31 Encounter for screening mammogram for malignant neoplasm of breast (principal); Z78.0 Asymptomatic menopausal state; M85.89 Other specified disorders of bone density and structure, multiple sites; M81.0 Age-related osteoporosis without current pathological fracture
CPT/HCPCS: 77063; 77067; 77080

== ENCOUNTER 2024-08-27 13:22 | Outpatient (CLI) | payer MEDICARE, SELFPAY ==
[2024-08-27 13:35] VITALS: BP 107/53; PULSE 66; RESP 18; TEMP 36.4; O2SAT 92
--- OUTSIDE RECORDS SUMMARY | 2024-08-27 13:43 | XMS_ITS | Referral Summary ---
Author Organization [facility] Address [address] [place] [phone] Care Team Providers Care Laborer Powerhouse Name Role Phone Lemuel Haque MD Primary Care Provider [phone] Pieter Gurrola MD PhD Unavailable [phone] Beto Iraheta MD Unavailable [phone] Encounters Date Type Department Care Team Description 08/16/2024 1:30 PM CDT Office Visit [facility] Rad[facility] Oncology [address] [place] [phone] Angelique Gaspar, [place] Malignant neoplasm of upper lobe, right bronchus or lung (HCC) 07/18/2024 1:06 PM CDT - 07/18/2024 11:59 PM CDT Hospital Encounter [facility] [address] [place] [phone] Malignant neoplasm of upper lobe, right bronchus or lung (HCC) Discharge Disposition: Discharge to home or self care 07/17/2024 Telephone [facility] [address] [place] [address] Breanna John from Last 3 Months Allergies Active Allergy [...] 02/21/2020 Assessment & Plan (02/21/2020 11:29 AM ANTIQUE AUTOMOBILES REPAIRER): Nasal saline spray (Simply saline, Little Remedies, [place], [place]) 2 second sprays or 2 squeezes into [...] 05/27/2018 Assessment & Plan (05/27/2018 9:41 AM ANTIQUE AUTOMOBILES REPAIRER): Echo could estimated RVSP and suspect some pulm htn. EF normal Lasix added to spironolactone Morbid obesity 05/24/2018 Overview (05/24/2018): Can be addressed on outpt basis when resp issues more stable Influenza A 05/23/2018 Assessment & Plan (05/24/2018 4:39 PM ANTIQUE AUTOMOBILES REPAIRER): Patient is currently on Tamiflu. She has been afebrile and denies any myalgias. Will continue to monitor. Supportive care if needed. Assessment & Plan (05/23/2018 10:21 PM ANTIQUE AUTOMOBILES REPAIRER): Patient is currently on Tamiflu. She has been afebrile and denies any myalgias. Will continue to monitor. Supportive care if needed. Acute exacerbation of chroni c obstructive pulmonary disease (COPD) 05/23/2018 Assessment & Plan (05/24/2018 4:40 PM ANTIQUE AUTOMOBILES REPAIRER): Likely secondary to influenza. Patient was given 125 mg of Solu-Medrol with EMS. Will start prednisone 40 daily. Patient is on doxycycline. Will continue with breathing treatments q.4 hours. Continue to monitor. Assessment & Plan (05/23/2018 10:31 PM ANTIQUE AUTOMOBILES REPAIRER): Likely secondary to influenza. Patient was given 125 mg of Solu-Medrol with EMS. Will start prednisone 40 daily. Patient is on doxycycline. Will continue with breathing treatments q.4 hours. Continue to monitor. Acute on chronic respiratory failure with hypoxia and hypercapnia 05/23/2018 Assessment & Plan (05/25/2018 7:02 PM ANTIQUE AUTOMOBILES REPAIRER): Likely secondary to influenza and acute COPD [...] well Assessment & Plan (05/23/2018 10:22 PM ANTIQUE AUTOMOBILES REPAIRER): Likely secondary to influenza and acute COPD exacerbation. Patient is on 3 L home oxygen normally. She is currently on BiPAP which will continue overnight. Will repeat ABG in the a.m.. Essential hypertension 05/23/2018 Assessment & Plan (05/24/2018 4:39 PM ANTIQUE AUTOMOBILES REPAIRER): Blood pressure is slightly elevated at this time. Will DC IV fluids. Will resume spironolactone with hold parameters. Continue to monitor. Assessment & Plan (05/23/2018 10:21 PM ANTIQUE AUTOMOBILES REPAIRER): Blood pressure is slightly elevated at this time. Will DC IV fluids. Will resume spironolactone with hold parameters. Continue to monitor. Tobacco dependence 05/23/2018 Assessment & Plan (05/24/2018 4:39 PM ANTIQUE AUTOMOBILES REPAIRER): Patient smokes 1 pack per day for last 50 years. She would like a nicotine patch at this time. Assessment & Plan (05/23/2018 10:21 PM ANTIQUE AUTOMOBILES REPAIRER): Patient smokes 1 pack per day for last 50 years. She would like a nicotine patch at this time. Social History Tobacco Use Types Packs/Day Years Used Date Smoking Tobacco: Every Day Cigarettes 1.5 56.4 Started: 1970 Smokeless Tobacco: Never Tobacco Cessation:Ready [...] on file Legal Sex Female 1:52 AM ANTIQUE AUTOMOBILES REPAIRER Gender Identity Not on file Sexual Orientation Not on file Last Filed Vital Signs Vital Sign Reading Time Taken Comments Blood Pressure 122/70 08/16/2024 1:32 PM CDT Pulse 65 08/16/2024 1:32 PM CDT Temperature 36.4 C (97.5 F) 08/16/2024 1:32 PM CDT Respiratory Rate 20 08/16/2024 1:32 PM CDT Oxygen Saturation 93% 08/16/2024 1:32 PM CDT Inhaled Oxygen Concentration - - Weight 104.8 kg (231 lb) 02/01/2024 1:04 PM CDT Height 160 cm (5' 3 ) 04/30/2023 2:10 PM ANTIQUE AUTOMOBILES REPAIRER Body Mass Index 40.92 04/30/2023 2:10 PM ANTIQUE AUTOMOBILES REPAIRER Plan of Treatment Not on file Procedures Procedure Name Priority Date/Time Associated Diagnosis Comments CT CHEST WO CONTRAST Schedule Routine, Read Routine (OP Routine) 07/18/2024 1:23 PM CDT Malignant neoplasm of upper lobe, right bronchus or lung (HCC) from Last 3 Months Results * CT Chest WO Contrast (07/18/2024 1:23 PM CDT) Anatomical Region Laterality Modality Body N/A Computed Tomogra phy 07/28/2024 1:20 PM CDT Narrative 07/28/2024 1:26 PM CDT EXAM DESCRIPTION: CT CHEST WO CONTRAST REASON FOR STUDY: Non-small cell lung cancer (NSCLC), non-metastatic, assess treatment response F/u on lung cancer TECHNIQUE: CT scan of the chest performed without intravenous contrast using helical scanning technique. Reconstructed coronal and sagittal MPR images reviewed. All images stored on PACS. Automated exposure control was used as a dose optimization technique for this examination. COMPARISON: 04/25/2024 FINDINGS: The sensitivity for detection of solid visceral lesions is diminished without the use of intravenous contrast. LUNGS: Diffuse emphysematous changes of the lungs are again noted. Previously seen nodule in the right middle lobe is no longer evident. Minor scarring in the anterior aspect of the right upper lobe is stable. No other significant lung lesions are seen. No other nodules are clearly identified. No new lung lesions are seen. PLEURA: No effusion. No pneumothorax. MEDIASTINUM/NADIRA: No identified masses or abnormal nodes. Left thyroid nodule is again noted HEART: Heart size is normal with no pericardial effusion. CORONARY ARTERY CALCIFICATION: None VASCULATURE: No thoracic aortic aneurysm. AXILLA: No adenopathy. CHEST WALL: No masses. No subcutaneous air. HARDWARE/LINES/TUBES: None. UPPER ABDOMEN: Surgical changes of the proximal stomach are noted. MUSCULOSKELETAL: No significant abnormality. OTHER: No other significant abnormality. IMPRESSION: Previously seen right middle lobe nodule is no longer evident. No new lung lesions are seen. Extensive emphysematous changes of the lungs are again noted. Left thyroid nodule is again noted. This is evaluated on previous ultrasound THIS IS AN ELECTRONICALLY VERIFIED FINAL REPORT 07/28/2024 1:26 PM - Electronically signed by Esa CODY: GLO Report ID: [id number] Reading Location: [place] [address] Procedure Note Esa Mccann MD - 07/28/2024 EXAM DESCRIPTION: CT CHEST WO CONTRAST REASON FOR STUDY: Non-small cell lung cancer (NSCLC), non-metastatic,assess treatment response F/u on lung cancer TECHNIQUE: CT scan of the chest performed without intravenous contrastusing helical scanning technique. Reconstructed coronal and sagittal MPR images reviewed. All images stored on PACS. Automated exposure control was usedas a dose optimization technique for this examination. COMPARISON: 04/25/2024 FINDINGS: The sensitivity for detection of solid visceral lesions is diminishedwithout the use of intravenous contrast. LUNGS: Diffuse emphysematous changes of the lungs are again noted. Previously seen nodule in the right middle lobe is no longer evident.Minor scarring in the anterior aspect of the right upper lobe is stable. Noother significant lung lesions are seen. No other nodules are clearlyidentified. No new lung lesions are seen. PLEURA: No effusion. No pneumothorax. MEDIASTINUM/NADIRA: No identified masses or abnormal nodes. Left thyroid nodule is again noted HEART: Heart size is normal with no pericardial effusion. CORONARY ARTERY CALCIFICATION: None VASCULATURE: No thoracic aortic aneurysm. AXILLA: No adenopathy. CHEST WALL: No masses. No subcutaneous air. HARDWARE/LINES/TUBES: None. UPPER ABDOMEN: Surgical changes of the proximal stomach are noted. MUSCULOSKELETAL: No significant abnormality. OTHER: No other significant abnormality. IMPRESSION: Previously seen right middle lobe nodule is no longer evident. No newlung lesions are seen. Extensive emphysematous changes of the lungs are again noted. Left thyroid nodule is again noted. This is evaluated on previousultrasound THIS IS AN ELECTRONICALLY VERIFIED FINAL REPORT 07/28/2024 1:26 PM - Electronically signed by Esa CODY: GLO Report ID: [id number] Reading Location: [id number] Angelique Gaspar DIRECTOR OF RESOURCE DEVELOPMENT IMG CT PROCEDURES Final Resul t from Last 3 Months Insurance [facility] MEDICARE ADVANTAGE IDPA [facility] MEDICARE [place] AETNA MEDICARE AETNA MEDICARE [place] Advance Directives For more information, please contact: [phone] * Full Code (Latest Code Status on File) Date Activated Date Inactivated Comments 05/23/2018 5:04 PM 06/01/2018 5:47 PM Care Teams Laborer Powerhouse Relationship Specialty Start Date End Date Lemuel Haque MD PCP - General 10/07/10 Pieter Gurrola MD PhD [address] [place] [address] Radiation Oncologist Radiation Oncology 03/04/22 [place] [id number] [address] Referring Physician Pulmonary Disease 03/04/22
--- OUTSIDE RECORDS SUMMARY | 2024-08-27 13:43 | XMS_ITS ---
Author Organization [facility], Formerly [facility] Address [address] [place] [address] Care Team Providers Care Butcher Name Role Phone Lemuel Haque MD Primary Care Provider [phone] Pieter Gurrola MD PhD Unavailable [phone] Beto Iraheta MD Unavailable [phone] Active Problems Problem Noted Date Diagnosed Date Malignant neoplasm of upper lobe, right bronchus or lung 03/04/2022 Cancer Staging:Clinical stage from 03/04/2022:Stage IA2(cT1b, cN0, cM0) - Signed by Pieter Gurrola MD PhD on 03/04/2022 Allergic rhinitis 02/21/2020 Assessment & Plan (02/21/2020 11:29 AM MONUMENT STONECUTTER): Nasal saline spray (Simply saline, Little Remedies, [place], [place]) 2 second sprays or 2 squeezes into [...] 05/27/2018 Assessment & Plan (05/27/2018 9:41 AM MONUMENT STONECUTTER): Echo could estimated RVSP and suspect some pulm htn. EF normal Lasix added to spironolactone Morbid obesity 05/24/2018 Overview (05/24/2018): Can be addressed on outpt basis when resp issues more stable Influenza A 05/23/2018 Assessment & Plan (05/24/2018 4:39 PM MONUMENT STONECUTTER): Patient is currently on Tamiflu. She has been afebrile and denies any myalgias. Will continue to monitor. Supportive care if needed. Assessment & Plan (05/23/2018 10:21 PM MONUMENT STONECUTTER): Patient is currently on Tamiflu. She has been afebrile and denies any myalgias. Will continue to monitor. Supportive care if needed. Acute exacerbation of chroni c obstructive pulmonary disease (COPD) 05/23/2018 Assessment & Plan (05/24/2018 4:40 PM MONUMENT STONECUTTER): Likely secondary to influenza. Patient was given 125 mg of Solu-Medrol with EMS. Will start prednisone 40 daily. Patient is on doxycycline. Will continue with breathing treatments q.4 hours. Continue to monitor. Assessment & Plan (05/23/2018 10:31 PM MONUMENT STONECUTTER): Likely secondary to influenza. Patient was given 125 mg of Solu-Medrol with EMS. Will start prednisone 40 daily. Patient is on doxycycline. Will continue with breathing treatments q.4 hours. Continue to monitor. Acute on chronic respiratory failure with hypoxia and hypercapnia 05/23/2018 Assessment & Plan (05/25/2018 7:02 PM MONUMENT STONECUTTER): Likely secondary to influenza and acute COPD [...] well Assessment & Plan (05/23/2018 10:22 PM MONUMENT STONECUTTER): Likely secondary to influenza and acute COPD exacerbation. Patient is on 3 L home oxygen normally. She is currently on BiPAP which will continue overnight. Will repeat ABG in the a.m.. Essential hypertension 05/23/2018 Assessment & Plan (05/24/2018 4:39 PM MONUMENT STONECUTTER): Blood pressure is slightly elevated at this time. Will DC IV fluids. Will resume spironolactone with hold parameters. Continue to monitor. Assessment & Plan (05/23/2018 10:21 PM MONUMENT STONECUTTER): Blood pressure is slightly elevated at this time. Will DC IV fluids. Will resume spironolactone with hold parameters. Continue to monitor. Tobacco dependence 05/23/2018 Assessment & Plan (05/24/2018 4:39 PM MONUMENT STONECUTTER): Patient smokes 1 pack per day for last 50 years. She would like a nicotine patch at this time. Assessment & Plan (05/23/2018 10:21 PM MONUMENT STONECUTTER): Patient smokes 1 pack per day for [...]
--- OUTSIDE RECORDS SUMMARY | 2024-08-27 13:43 | XMS_ITS | Continuity of Care Document ---
Author Organization [facility] Address [address] [place] [address] Care Team Providers Care Executive Director Of Nursing Name Role Phone Quang Jaramillo MD Unavailable Unavailable Procedures Procedure Date Calcium Scoring, Pro Advance Directives Directive Yes / No Effective Date File Name No Information Encounters Encounter Description Practice Location Reason(s) For Visit Diagnoses Date Provider Providers Copied on Encounter [facility], [address] [place] [address], [address] [place] [address] Office No Information 4 Ella Del Rio. [address] [facility], [address], [facility], . tel:[phone] [facility], [address] [place] [address], [facility] No Information 4 Ella Del Rio. [address] [facility], [address] [place] [address], [facility], . tel:[phone] Referring Provider: Quang Giordano, [address] [facility] [address] [place] [address], [address]. tel:[phone] sulting Provider: Graeme Bedolla, [address] [facility] [address] [place] [address], [address]. tel:[phone] [facility], [address] [place] [address], [address] [place] [address] Office Cardiovascular Screening 4 Ella Del Rio. [address] [facility], [address], [facility], . tel:[phone] Family History Family Member Type Diagnosis Age At Onset No Information Payers Payer name Insurance type Covered libertarian ID Authoriza tion(s) No Information Social History Type Description Quantity Date Captured Comments Alcohol Use Details Unknown Caffeine Use Details Unknown Tobacco Use Status No Information Smoking Status Never smoker Sex Female Chief Complaint And Reason For Visit No Information Reason For Referral Reason For Referral No Information History Of Present Illness Encounter Date Complaint History Of Prese nt Illness No Information Functional Status Date Functional Assessmen t No Information Instructions Date Instruction Additional Infor mation No Information Assessments Type Assessment Date No Information Patient Care Teams Name Effective Dates (start - stop) Status Members No Information
--- OUTSIDE RECORDS SUMMARY | 2024-08-27 13:43 | XMS_ITS | Clinical Summary ---
Author Organization [facility] Address [address] [place] [id number] Care Team Providers Care Scalloper Name Role Phone Lemuel Haque MD Primary Care Provider [phone] Pieter Gurrola MD PhD Unavailable [phone] Beto Iraheta MD Unavailable [phone] Allergies Active Allergy Reactions Criticality Noted Date [...] 02/21/2020 Assessment & Plan (02/21/2020 11:29 AM MATHEMATICAL PHYSICIST): Nasal saline spray (Simply saline, Little Remedies, [place], [place]) 2 second sprays or 2 squeezes into [...] 05/27/2018 Assessment & Plan (05/27/2018 9:41 AM MATHEMATICAL PHYSICIST): Echo could estimated RVSP and suspect some pulm htn. EF normal Lasix added to spironolactone Morbid obesity 05/24/2018 Overview (05/24/2018): Can be addressed on outpt basis when resp issues more stable Influenza A 05/23/2018 Assessment & Plan (05/24/2018 4:39 PM MATHEMATICAL PHYSICIST): Patient is currently on Tamiflu. She has been afebrile and denies any myalgias. Will continue to monitor. Supportive care if needed. Assessment & Plan (05/23/2018 10:21 PM MATHEMATICAL PHYSICIST): Patient is currently on Tamiflu. She has been afebrile and denies any myalgias. Will continue to monitor. Supportive care if needed. Acute exacerbation of chroni c obstructive pulmonary disease (COPD) 05/23/2018 Assessment & Plan (05/24/2018 4:40 PM MATHEMATICAL PHYSICIST): Likely secondary to influenza. Patient was given 125 mg of Solu-Medrol with EMS. Will start prednisone 40 daily. Patient is on doxycycline. Will continue with breathing treatments q.4 hours. Continue to monitor. Assessment & Plan (05/23/2018 10:31 PM MATHEMATICAL PHYSICIST): Likely secondary to influenza. Patient was given 125 mg of Solu-Medrol with EMS. Will start prednisone 40 daily. Patient is on doxycycline. Will continue with breathing treatments q.4 hours. Continue to monitor. Acute on chronic respiratory failure with hypoxia and hypercapnia 05/23/2018 Assessment & Plan (05/25/2018 7:02 PM MATHEMATICAL PHYSICIST): Likely secondary to influenza and acute COPD [...] well Assessment & Plan (05/23/2018 10:22 PM MATHEMATICAL PHYSICIST): Likely secondary to influenza and acute COPD exacerbation. Patient is on 3 L home oxygen normally. She is currently on BiPAP which will continue overnight. Will repeat ABG in the a.m.. Essential hypertension 05/23/2018 Assessment & Plan (05/24/2018 4:39 PM MATHEMATICAL PHYSICIST): Blood pressure is slightly elevated at this time. Will DC IV fluids. Will resume spironolactone with hold parameters. Continue to monitor. Assessment & Plan (05/23/2018 10:21 PM MATHEMATICAL PHYSICIST): Blood pressure is slightly elevated at this time. Will DC IV fluids. Will resume spironolactone with hold parameters. Continue to monitor. Tobacco dependence 05/23/2018 Assessment & Plan (05/24/2018 4:39 PM MATHEMATICAL PHYSICIST): Patient smokes 1 pack per day for last 50 years. She would like a nicotine patch at this time. Assessment & Plan (05/23/2018 10:21 PM MATHEMATICAL PHYSICIST): Patient smokes 1 pack per day for last 50 years. She would like a nicotine patch at this time. Encounters Date Type Department Care Team Description 08/16/2024 1:30 PM CDT Office Visit [facility] [address] [place] [address] Angelique Gaspar, [place] Malignant neoplasm of upper lobe, right bronchus or lung (HCC) 07/18/2024 1:06 PM CDT - 07/18/2024 11:59 PM CDT Hospital Encounter [facility] [address] [place] [address] Malignant neoplasm of upper lobe, right bronchus or lung (HCC) Discharge Disposition: Discharge to home or self care 07/17/2024 Telephone [facility] [address] [place] [address] Breanna John from Last 3 Months Surgical History Surgery [...] on file Legal Sex Female 1:52 AM MATHEMATICAL PHYSICIST Gender Identity Not on file Sexual Orientation [...] cm (5' 3 ) 04/30/2023 2:10 PM MATHEMATICAL PHYSICIST Body Mass Index 40.92 04/30/2023 2:10 PM MATHEMATICAL PHYSICIST Plan of Treatment Health Maintenance Due Date [...] 1:26 PM - Electronically signed by Esa Mccann M.D. KH: GLO Report ID: [id number] Reading Location: [id number] Procedure Note Esa Mccann MD - 07/28/2024 [...] 1:26 PM - Electronically signed by Esa Mccann M.D. KH: GLO Report ID: [id number] Reading Location: [place] [address] Angelique Gaspar NP IMG CT PROCEDURES Final Resul t from Last 3 Months Insurance [facility] MEDICARE ADVANTAGE [facility] AETNA MEDICARE [place] AETNA MEDICARE AETNA MEDICARE IDAL Advance Directives For more information, please contact: [phone] * Full Code (Latest Code Status on File) Date Activated Date Inactivated Comments 05/23/2018 5:04 PM 06/01/2018 5:47 PM Care Teams Scalloper Relationship Specialty Start Date End Date Lemuel Haque MD PCP - General 10/07/10 Pieter Gurrola MD PhD [address] [place] [address] Radiation Oncologist Radiation Oncology 03/04/22 [place] [id number] [address] Referring Physician Pulmonary Disease 03/04/22
--- OUTSIDE RECORDS SUMMARY | 2024-08-27 13:43 | XMS_ITS | Clinical Summary ---
Author Organization [facility] Address [address], [place] [address] Phone Care Team Providers Care Telemarketing Sales Representative Name Role Phone Lemuel Haque MD Primary Care Provider [phone] Allergies Active Allergy Reactions Criticality Noted Date [...] age to complete this topic Insurance MEDICARE [facility] Care Teams Telemarketing Sales Representative Relationship Specialty Start Date End Date Lemuel Haque MD [address] [place] [address] PCP - General Internal Medicine 05/27/16
[2024-08-27 13:49] VITALS: BMI 36.3
[2024-08-27] MEDS: DENOSUMAB 60 MG/ML SYRINGE SUB-Q (13:53)
== END 2024-08-27 14:00 | disposition home or self-care (01) ==
PROVIDERS: PCP Internal Medicine; Visit Provider Nurse Practitioner Family
DX: M81.0 Age-related osteoporosis without current pathological fracture (principal)
CPT/HCPCS: 96372; J0897

== ENCOUNTER 2024-11-15 13:33 | Outpatient (CLI) | payer MEDICARE, SELFPAY ==
--- NOTE | ~2024-11-15 | XR_ITS ---
Exam: Abdomen 1V HISTORY: constipation/rectal pain x2 weeks COMPARISON: None. Reference is made to a CT examination of the abdomen and pelvis date TECHNIQUE: Supine images of the abdomen FINDINGS: Bowel gas pattern is nonspecific. Postoperative change within the upper abdomen. Fecal stasis within the colon and distending the rectum to more than 10 cm in medial to lateral dimen angelo. There is no free air or deep sulci. No pathologic calcifications are seen. Lung bases are unremarkable. Bones and soft tissues are unremarkable. IMPRESSION: Findings consistent with fecal impaction, as detailed above. Reviewed, dictated and finalized at location A.
--- OUTSIDE RECORDS SUMMARY | 2024-11-15 13:38 | XMS_ITS ---
Author Organization [facility] Address [address] [place] [id number] Care Team Providers Care Hide Inspector And Sorter Name Role Phone Lemuel Haque MD Primary Care Provider [phone] Pieter Gurrola MD PhD Unavailable [phone] Beto Iraheta MD Unavailable [phone] Active Problems Problem Noted Date Diagnosed Date Malignant neoplasm of upper lobe, right bronchus or lung 03/04/2022 Cancer Staging:Clinical stage from 03/04/2022:Stage IA2(cT1b, cN0, cM0) - Signed by Pieter Gurrola MD PhD on 03/04/2022 Allergic rhinitis 02/21/2020 Assessment & Plan (02/21/2020 11:29 AM JEWEL HOLE ROUGH OPENER): Nasal saline spray (Simply saline, Little Remedies, [place], [place]) 2 second sprays or 2 squeezes into [...] 05/27/2018 Assessment & Plan (05/27/2018 9:41 AM JEWEL HOLE ROUGH OPENER): Echo could estimated RVSP and suspect some pulm htn. EF normal Lasix added to spironolactone Morbid obesity 05/24/2018 Overview (05/24/2018): Can be addressed on outpt basis when resp issues more stable Influenza A 05/23/2018 Assessment & Plan (05/24/2018 4:39 PM JEWEL HOLE ROUGH OPENER): Patient is currently on Tamiflu. She has been afebrile and denies any myalgias. Will continue to monitor. Supportive care if needed. Assessment & Plan (05/23/2018 10:21 PM JEWEL HOLE ROUGH OPENER): Patient is currently on Tamiflu. She has been afebrile and denies any myalgias. Will continue to monitor. Supportive care if needed. Acute exacerbation of chroni c obstructive pulmonary disease (COPD) 05/23/2018 Assessment & Plan (05/24/2018 4:40 PM JEWEL HOLE ROUGH OPENER): Likely secondary to influenza. Patient was given 125 mg of Solu-Medrol with EMS. Will start prednisone 40 daily. Patient is on doxycycline. Will continue with breathing treatments q.4 hours. Continue to monitor. Assessment & Plan (05/23/2018 10:31 PM JEWEL HOLE ROUGH OPENER): Likely secondary to influenza. Patient was given 125 mg of Solu-Medrol with EMS. Will start prednisone 40 daily. Patient is on doxycycline. Will continue with breathing treatments q.4 hours. Continue to monitor. Acute on chronic respiratory failure with hypoxia and hypercapnia 05/23/2018 Assessment & Plan (05/25/2018 7:02 PM JEWEL HOLE ROUGH OPENER): Likely secondary to influenza and acute COPD [...] well Assessment & Plan (05/23/2018 10:22 PM JEWEL HOLE ROUGH OPENER): Likely secondary to influenza and acute COPD exacerbation. Patient is on 3 L home oxygen normally. She is currently on BiPAP which will continue overnight. Will repeat ABG in the a.m.. Essential hypertension 05/23/2018 Assessment & Plan (05/24/2018 4:39 PM JEWEL HOLE ROUGH OPENER): Blood pressure is slightly elevated at this time. Will DC IV fluids. Will resume spironolactone with hold parameters. Continue to monitor. Assessment & Plan (05/23/2018 10:21 PM JEWEL HOLE ROUGH OPENER): Blood pressure is slightly elevated at this time. Will DC IV fluids. Will resume spironolactone with hold parameters. Continue to monitor. Tobacco dependence 05/23/2018 Assessment & Plan (05/24/2018 4:39 PM JEWEL HOLE ROUGH OPENER): Patient smokes 1 pack per day for last 50 years. She would like a nicotine patch at this time. Assessment & Plan (05/23/2018 10:21 PM JEWEL HOLE ROUGH OPENER): Patient smokes 1 pack per day for [...]
--- OUTSIDE RECORDS SUMMARY | 2024-11-15 13:38 | XMS_ITS | Continuity of Care Document ---
Author Organization [facility] Address [address] [place] [address] Care Team Providers Care Hand Almond Blancher Name Role Phone Quang Jaramillo MD Unavailable Unavailable Procedures Procedure Date Calcium Scoring, Pro Advance Directives Directive Yes / No Effective Date File Name No Information Encounters Encounter Description Practice Location Reason(s) For Visit Diagnoses Date Provider Providers Copied on Encounter [facility], [address] [place] [address], [address] [place] [address] Office No Information 4 Ella Del Rio. [address] [facility], [address], [facility] [place], . tel:[phone] [facility], [address] [place] [address], [facility], [facility] No Information 4 Ella Del Rio. [address] [facility], [address] [place] [address], [facility] [place], . tel:[phone] Referring Provider: Quang Giordano, [address] [facility] [address] [place] [address], [address]. tel:[phone] sulting Provider: Graeme Bedolla, [address] [facility] [address] [place] [address], [address]. tel:[phone] [facility], [address] [place] [address], [address] [place] [address] Office Cardiovascular Screening 4 Ella Del Rio. [address] [facility], [address], [facility] [place] [facility] [place], . tel:[phone] Family History Family Member Type Diagnosis Age At Onset No Information Payers Payer name Insurance type Covered democrat ID Authoriza tion(s) No Information Social History [...]
--- OUTSIDE RECORDS SUMMARY | 2024-11-15 13:38 | XMS_ITS | Clinical Summary ---
Author Organization [facility] Address [address], [place] [address] Phone Care Team Providers Care Door Assembler Name Role Phone Lemuel Haque MD Primary Care Provider [phone] Allergies Active Allergy Reactions Criticality Noted Date [...] 10:28 AM CDT Height 160 cm (5' 3) 08/31/2016 10:28 AM CDT Body Mass Index 45.81 08/31/2016 10:28 AM CDT Plan of Treatment Health Maintenance Due Date Last Done Comments Hepatitis C Virus (HCV) Screening 1955 TdaP Immunization 1955 Cologuard 1998 Colonoscopy 1998 Colorectal Cancer Screening 1998 Immunochemical Fecal Occult Blood 1998 Zoster Immunization (1 of 2) 12/23/2003 Respiratory Syncytial Virus (RSV) Immunization (Adult) (1 - Risk 60-74 years 1-dose series) 2013 SARS-COV-2 Immunization (1 - 2023- season) 2023 Pneumococcal Immunization (5 0+ years) (3 of 3 - PCV20 or PCV21) 04/30/2024 04/30/2019, 02/16/2018 Influenza Immunization (#1) 2024 Pneumococcal Immunization Combined Discontinued 04/30/2019, 02/16/2018 Hepatitis B Immunization Aged Out No longer eligible based on patient's age to complete this topic Human Papillomavirus (HPV) Immunization Aged Out No longer eligible based on patient's age to complete this topic Meningococcal Immunization (ACWY) Aged Out No longer eligible based on patient's age to complete this topic Rotavirus Immunization Aged Out No lo nger eligible based on patient's age to complete this topic Insurance MEDICARE [facility] OA Care Teams Door Assembler Relationship Specialty Start Date End Date Lemuel Haque MD [address] [place] [address] PCP - General Internal Medicine 05/27/16
--- OUTSIDE RECORDS SUMMARY | 2024-11-15 13:38 | XMS_ITS | Clinical Summary ---
Author Organization [facility] Address [address] [place] [address] Care Team Providers Care Core Feeder Name Role Phone Lemuel Haque MD Primary Care Provider [phone] Pieter Gurrola MD PhD Unavailable [phone] Beto Iraheta MD Unavailable [phone] Allergies Active Allergy Reactions Criticality Noted Date [...] 02/21/2020 Assessment & Plan (02/21/2020 11:29 AM SUSPECT ARTIST SUPERVISOR): Nasal saline spray (Simply saline, Little Remedies, [place], [place]) 2 second sprays or 2 squeezes into [...] 05/27/2018 Assessment & Plan (05/27/2018 9:41 AM SUSPECT ARTIST SUPERVISOR): Echo could estimated RVSP and suspect some pulm htn. EF normal Lasix added to spironolactone Morbid obesity 05/24/2018 Overview (05/24/2018): Can be addressed on outpt basis when resp issues more stable Influenza A 05/23/2018 Assessment & Plan (05/24/2018 4:39 PM SUSPECT ARTIST SUPERVISOR): Patient is currently on Tamiflu. She has been afebrile and denies any myalgias. Will continue to monitor. Supportive care if needed. Assessment & Plan (05/23/2018 10:21 PM SUSPECT ARTIST SUPERVISOR): Patient is currently on Tamiflu. She has been afebrile and denies any myalgias. Will continue to monitor. Supportive care if needed. Acute exacerbation of chroni c obstructive pulmonary disease (COPD) 05/23/2018 Assessment & Plan (05/24/2018 4:40 PM SUSPECT ARTIST SUPERVISOR): Likely secondary to influenza. Patient was given 125 mg of Solu-Medrol with EMS. Will start prednisone 40 daily. Patient is on doxycycline. Will continue with breathing treatments q.4 hours. Continue to monitor. Assessment & Plan (05/23/2018 10:31 PM SUSPECT ARTIST SUPERVISOR): Likely secondary to influenza. Patient was given 125 mg of Solu-Medrol with EMS. Will start prednisone 40 daily. Patient is on doxycycline. Will continue with breathing treatments q.4 hours. Continue to monitor. Acute on chronic respiratory failure with hypoxia and hypercapnia 05/23/2018 Assessment & Plan (05/25/2018 7:02 PM SUSPECT ARTIST SUPERVISOR): Likely secondary to influenza and acute COPD [...] well Assessment & Plan (05/23/2018 10:22 PM SUSPECT ARTIST SUPERVISOR): Likely secondary to influenza and acute COPD exacerbation. Patient is on 3 L home oxygen normally. She is currently on BiPAP which will continue overnight. Will repeat ABG in the a.m.. Essential hypertension 05/23/2018 Assessment & Plan (05/24/2018 4:39 PM SUSPECT ARTIST SUPERVISOR): Blood pressure is slightly elevated at this time. Will DC IV fluids. Will resume spironolactone with hold parameters. Continue to monitor. Assessment & Plan (05/23/2018 10:21 PM SUSPECT ARTIST SUPERVISOR): Blood pressure is slightly elevated at this time. Will DC IV fluids. Will resume spironolactone with hold parameters. Continue to monitor. Tobacco dependence 05/23/2018 Assessment & Plan (05/24/2018 4:39 PM SUSPECT ARTIST SUPERVISOR): Patient smokes 1 pack per day for last 50 years. She would like a nicotine patch at this time. Assessment & Plan (05/23/2018 10:21 PM SUSPECT ARTIST SUPERVISOR): Patient smokes 1 pack per day for last 50 years. She would like a nicotine patch at this time. Encounters Date Type Department Care Team Description 08/16/2024 1:30 PM CDT Office Visit [facility] Radiation Oncology [address] [place] [address] Angelique Gaspar, [place] Malignant neoplasm of upper lobe, right bronchus or lung (HCC) from Last 3 Months Surgical History Surgery Date Site/Laterality Comments GASTRIC BYPASS Medical History Medical History Date Comments Anemia Anemia Hypertension Hypertension COPD (chronic obstructive pulmonary disease) Family History Medical History Relation Name Comments Cancer Other 1 Family history of Cancer; Heart disease Other 2 Family history of Heart disease; Hypertension Other 3 Family history of Hypertension; Relation Name Status Comments Other 1 Other 2 Other 3 Social History Tobacco Use Types Packs/Day Years Used Date Smoking Tobacco: Every Day Cigarettes 1.5 56.6 Started: 1970 Smokeless Tobacco: Never Tobacco Cessation:Ready [...] on file Legal Sex Female 1:52 AM SUSPECT ARTIST SUPERVISOR Gender Identity Not on file Sexual Orientation [...] 1:04 PM CDT Height 160 cm (5' 3) 04/30/2023 2:10 PM SUSPECT ARTIST SUPERVISOR Body Mass Index 40.92 04/30/2023 2:10 PM SUSPECT ARTIST SUPERVISOR Plan of Treatment Health Maintenance Due Date [...] or PCV21) 04/30/2024 04/30/2019, 02/16/2018 Influenza Vaccine (#1) 2024 Insurance [facility] MEDICARE ADVANTAGE [place] AETNA MEDICARE [facility] AET MEDICARE AETNA MEDICARE [place] Advance Directives For more information, please contact: [phone] * Full Code (Latest Code Status on File) Date Activated Date Inactivated Comments 05/23/2018 5:04 PM 06/01/2018 5:47 PM Care Teams Core Feeder Relationship Specialty Start Date End Date Lemuel Haque MD PCP - General 10/07/10 Pieter Gurrola MD PhD [address] [place] [address] Radiation Oncologist Radiation Oncology 03/04/22 [place] [id number] [address] Referring Physician Pulmonary Disease 03/04/22
--- OUTSIDE RECORDS SUMMARY | 2024-11-15 13:38 | XMS_ITS | Referral Summary ---
Author Organization [facility] Address [address] [place] [id number] Care Team Providers Care Cytotechnologist/Histotechnologist Name Role Phone Lemuel Haque MD Primary Care Provider [phone] Pieter Gurrola MD PhD Unavailable [phone] Beto Iraheta MD Unavailable [phone] Encounters Date Type Department Care Team Description 08/16/2024 1:30 PM CDT Office Visit [facility] Radiation Oncology [address] [place] [id number] Angelique Gaspar, [place] Malignant neoplasm of upper lobe, right bronchus or lung (HCC) from Last 3 Months Allergies Active Allergy [...] 02/21/2020 Assessment & Plan (02/21/2020 11:29 AM ORCHARD SPRAYER): Nasal saline spray (Simply saline, [place] Remedies, [place], [place]) 2 second sprays or 2 squeezes into [...] 05/27/2018 Assessment & Plan (05/27/2018 9:41 AM ORCHARD SPRAYER): Echo could estimated RVSP and suspect some pulm htn. EF normal Lasix added to spironolactone Morbid obesity 05/24/2018 Overview (05/24/2018): Can be addressed on outpt basis when resp issues more stable Influenza A 05/23/2018 Assessment & Plan (05/24/2018 4:39 PM ORCHARD SPRAYER): Patient is currently on Tamiflu. She has been afebrile and denies any myalgias. Will continue to monitor. Supportive care if needed. Assessment & Plan (05/23/2018 10:21 PM ORCHARD SPRAYER): Patient is currently on Tamiflu. She has been afebrile and denies any myalgias. Will continue to monitor. Supportive care if needed. Acute exacerbation of chroni c obstructive pulmonary disease (COPD) 05/23/2018 Assessment & Plan (05/24/2018 4:40 PM ORCHARD SPRAYER): Likely secondary to influenza. Patient was given 125 mg of Solu-Medrol with EMS. Will start prednisone 40 daily. Patient is on doxycycline. Will continue with breathing treatments q.4 hours. Continue to monitor. Assessment & Plan (05/23/2018 10:31 PM ORCHARD SPRAYER): Likely secondary to influenza. Patient was given 125 mg of Solu-Medrol with EMS. Will start prednisone 40 daily. Patient is on doxycycline. Will continue with breathing treatments q.4 hours. Continue to monitor. Acute on chronic respiratory failure with hypoxia and hypercapnia 05/23/2018 Assessment & Plan (05/25/2018 7:02 PM ORCHARD SPRAYER): Likely secondary to influenza and acute COPD [...] well Assessment & Plan (05/23/2018 10:22 PM ORCHARD SPRAYER): Likely secondary to influenza and acute COPD exacerbation. Patient is on 3 L home oxygen normally. She is currently on BiPAP which will continue overnight. Will repeat ABG in the a.m.. Essential hypertension 05/23/2018 Assessment & Plan (05/24/2018 4:39 PM ORCHARD SPRAYER): Blood pressure is slightly elevated at this time. Will DC IV fluids. Will resume spironolactone with hold parameters. Continue to monitor. Assessment & Plan (05/23/2018 10:21 PM ORCHARD SPRAYER): Blood pressure is slightly elevated at this time. Will DC IV fluids. Will resume spironolactone with hold parameters. Continue to monitor. Tobacco dependence 05/23/2018 Assessment & Plan (05/24/2018 4:39 PM ORCHARD SPRAYER): Patient smokes 1 pack per day for last 50 years. She would like a nicotine patch at this time. Assessment & Plan (05/23/2018 10:21 PM ORCHARD SPRAYER): Patient smokes 1 pack per day for [...] on file Legal Sex Female 1:52 AM ORCHARD SPRAYER Gender Identity Not on file Sexual Orientation [...] 160 cm (5' 3) 04/30/2023 2:10 PM ORCHARD SPRAYER Body Mass Index 40.92 04/30/2023 2:10 PM ORCHARD SPRAYER Plan of Treatment Not on file Insurance [facility] MED[facility] [facility] Address: [address] [address] [place] [address] IDPA [facility] MEDICARE IDPA [facility] MEDICARE [employer] MEDICARE IDPA Advance Directives For more information, please contact: [phone] * Full Code (Latest Code Status on File) Date Activated Date Inactivated Comments 05/23/2018 5:04 PM 06/01/2018 5:47 PM Care Teams Cytotechnologist/Histotechnologist Relationship Specialty Start Date End Date Lemuel Haque MD PCP - General 10/07/10 Pieter Gurrola MD PhD [address] [place] [address] Radiation Oncologist Radiation Oncology 03/04/22 [place] [id number] [facility] [address] [place] [address] Referring Physician Pulmonary Disease 03/04/22
== END 2024-11-15 13:34 | disposition home or self-care (01) ==
LOC: CHSIMG 13:35
PROVIDERS: PCP Internal Medicine; Visit Provider Nurse Practitioner Family
DX: K59.00 Constipation, unspecified (principal); K62.89 Other specified diseases of anus and rectum
CPT/HCPCS: 74019